=== PATIENT | male | born 1995 | race Caucasian/White ===

== ENCOUNTER 2017-02-17 08:22 | Emergency (ER) | payer SELFPAY ==
--- NOTE | 2017-02-17 08:52 | Emergency Department Record ---
History of Present Illness - General Chief Complaint: Abdominal Pain Stated Complaint: STOMACH PAINS Time Seen by Provider: 02/17/17 08:44 Mode of Arrival: Ambulatory - History of Present Illness Initial Comments: abdominal pain epigastic abd pain and started this am and he has low grade abd pain all the time. positive for nausea and dry heaves . loose stool times one in 24 hours and no dysuria. Primary is Kendra Shipman. Similiar problem 1.5 years ago and he had US of GB which showed slude and he had a hida scan which was normal and normal labs than and he failed to follow up with Dr. Rose on his Hida scan but he saw Dr. Rose before the Hida scan was ordered. Under stress from work and family. PSH colonoscopy neg 2 years ago and EGD 2 years ago negative. MD Complaint: Abdominal pain Onset/Timin -: Hour(s) Location: Diffuse Radiation: None Severity: Moderate Quality: Aching, Sharp Consistency: Intermittent Improves With: Other Worsens With: Rest Associated Symptoms: Denies other symptoms - Related Data Previous Rx's Medication Instructions Recorded Omeprazole 20 mg PO DAILY #30 02/17/17 Allergies Allergy/AdvReac Type Severity Reaction Status Date / Time No Known Drug Allergies Allergy Unknown Verified 02/17/17 08:29 [NO KNOWN DRUG ALLERGIES] Travel Screening - Travel/Exposure Within Last 30 Days Have you traveled within the last 30 days?: No - Travel/Exposure Within Last Year Have you traveled outside the [place] in the last year?: No - Additonal Travel Details Have you been exposed to anyone with a communicable illness?: No - Travel Symptoms Symptom Screening: None Review of Systems Reviewed: No additional complaints except as noted below Constitutional: Reports: As per HPI. Denies: Chills, Fever, Malaise, Night sweats, Weakness, Weight change Eyes: Reports: As per HPI. Denies: Eye discharge, Eye pain, Photophobia, Vision change ENT: Reports: As per HPI. Denies: Congestion, Dental pain, Ear pain, Epistaxis , Hearing loss, Throat pain Respiratory: Reports: As per HPI. Denies: Cough, Dyspnea, Hemoptysis, Stridor, Wheezes Cardiovascular: Reports: As per HPI. Denies: Arrhythmia, Chest pain, Dyspnea on exertion, Edema, Murmurs, Orthopnea, Palpitations, Paroxysmal nocturnal dyspnea, Rheumatic Fever, Syncope Endocrine: Reports: As per HPI. Denies: Fatigue, Heat or cold intolerance, Polydipsia, Polyuria Gastrointestinal: Reports: As per HPI, Abdominal pain, Diarrhea, Nausea, Vomiting. Denies: Constipation, Hematemesis, Hematochezia, Melena Genitourinary: Reports: As per HPI. Denies: Dysuria, Frequency, Hematuria, Incontinence, Retention, Testicular pain, Testicular mass, Urgency Musculoskeletal: Reports: As per HPI. Denies: Arthralgia, Back pain, Gout, Joint swelling, Myalgia, Neck pain Skin: Reports: As per HPI. Denies: Bruising, Change in color, Change in hair/ nails, Lesions, Pruritus, Rash Neurological: Reports: As per HPI. Denies: Abnormal gait, Confusion, Headache, Numbness, Paresthesias, Seizure, Tingling, Tremors, Vertigo, Weakness Psychiatric: Reports: As per HPI. Denies: Anxiety, Auditory hallucinations, Depression, Homicidal thoughts, Suicidal thoughts, Visual hallucinations Hematological/Lymphatic: Reports: As per HPI. Denies: Anemia, Blood Clots, Easy bleeding, Easy bruising, Swollen glands Past Medical History - SOCIAL HISTORY Smoking Status: Never smoker Alcohol Use: None Drug Use: Heavy Drug Use Detail:: Marijuana - RESPIRATORY Hx Respiratory Disorders: No - CARDIOVASCULAR Hx Cardio Disorders: No - NEURO Hx Neuro Disorders: No - GI Hx GI Disorders: Yes Hx Abdominal Pain: Yes Hx Nausea/Vomiting: Yes (nausea) Hx of Polyps: Yes Comment:: colonoscopy - Hx Genitourinary Disorders: No - ENDOCRINE Hx Endocrine Disorders: No - MUSCULOSKELETAL Hx Musculoskeletal Disorders: No Comment:: left ankle irritation from implants - PSYCH Hx Psych Problems: No - HEMATOLOGY/ONCOLOGY Hx Hematology/Oncology Disorders: No Family Medical History Any Significant Family History?: Yes Hx Cancer: Grandparents *Cancer Comment: grandma Physical Exam - General General Appearance: Alert, Oriented x3, Cooperative, No acute distress - Head Head exam: Normal inspection - Eye Eye exam: Normal appearance, PERRL Pupils: Normal accommodation - ENT ENT exam: Normal exam, Mucous membranes moist, Normal external ear exam, Normal orophraynx, TM's normal bilaterally Ear exam: Normal external inspection. negative: External canal tenderness Nasal Exam: Normal inspection. negative: Discharge, Sinus tenderness Mouth exam: Normal external inspection, Tongue normal Teeth exam: Normal inspection. negative: Dental caries Throat exam: Normal inspection. negative: Tonsillar erythema, Tonsillar exudate - Neck Neck exam: Normal inspection, Full ROM. negative: Tenderness - Respiratory Respiratory exam: Normal lung sounds bilaterally. negative: Respiratory distress - Cardiovascular Cardiovascular Exam: Regular rate, Normal rhythm, Normal heart sounds - GI/Abdominal GI/Abdominal exam: Soft, Normal bowel sounds, Guarding, Tenderness. negative: Rebound, Rigid - Rectal Rectal exam: Deferred - exam: Deferred - Extremities Extremities exam: Normal inspection, Full ROM, Normal capillary refill. negative: Tenderness - Back Back exam: Reports: Normal inspection, Full ROM. Denies: Muscle spasm, Rash noted, Tenderness - Neurological Neurological exam: Alert, Normal gait, Oriented X3, Reflexes normal - Psychiatric Psychiatric exam: Normal affect, Normal mood - Skin Skin exam: Dry, Intact, Normal color, Warm Course Vital Signs 02/17/17 08:30 Temperature 98 F Pulse Rate 68 Respiratory 18 Rate Blood Pressure 118/80 Pulse Ox 98 - Reevaluation(s) Reevaluation #1: patient is feeling much better pain down to one and tolerable 02/17/17 10:31 Medical Decision Making - Data Complexity MDM Data: Labs Ordered and/or Reviewed (WBC 4,700. UA neg ,chemistries neg), X- Ray Ordered and/or Reviewed (GB US neg no sludge seen on this US preliminary report) - Lab Data Result diagrams: 02/17/17 09:00 02/17/17 09:00 Disposition Clinical Impression: Gastritis Qualifiers: Gastritis type: unspecified gastritis Chronicity: acute Gastritis bleeding: without bleeding Qualified Code(s): K29.00 - Acute gastritis without bleeding GERD (gastroesophageal reflux disease) Qualifiers: Esophagitis presence: without esophagitis Qualified Code(s): K21.9 - Gastro- esophageal reflux disease without esophagitis Disposition: Home, Self-Care Condition: (1) Good Instructions: Gastritis (ED), Abdominal Pain (ED) Additional Instructions: tollow up with Kendra Walker in 5-7 days maalox 30 ml(two tablespoons) after meals and bedtime omeprazole 20 mg per day Prescriptions: Omeprazole 20 mg PO DAILY #30 cap.dr Forms: Patient Portal Access Time of Disposition: 10:35 Quality - Quality Measures Quality Measures: N/A - Blood Pressure Screening Does Patient Have Any of the Following: No Blood Pressure Classification: Pre-Hypertensive BP Reading Systolic Measurement: 118 Diastolic Measurement: 80 Screening for High Blood Pressure: < Normal BP, F/U Not Required > [G8730]
[2017-02-17] MEDS: MAGNESIUM HYDROXIDE/AL HYDROX 30 ML, LIDOCAINE VISC 2% 200 MG PO ONE ×2 (09:11)
[2017-02-17] MEDS: LORAZEPAM 2 MG/ML VIAL IV ONE (09:11)
[2017-02-17] MEDS: ONDANSETRON HCL IV 4 MG/2 ML VIAL IV ONE (09:11)
[2017-02-17] MEDS: 0.9 % SODIUM CHLORIDE 1,000 ML BAG IV ONE (09:14)
[2017-02-17 09:25] LABS: BASO % 1.3 % (0-6); EOS % 9.9 % (0-6); GRAN % 48.5 % (47-80); HEMATOCRIT 40.6 % (42.0-52.0); HEMOGLOBIN 14.1 gm/dl (14.0-18.0); MEAN CELL VOLUME 95.1 fl (81-97); MEAN CORPUSCULAR HGB CONC 34.7 g/dl (32-36); MEAN PLATELET VOLUME 10.7 fl (7.4-10.4); MONO % 7.3 % (0-9); PLATELET COUNT 149 K/uL (130-400); RED BLOOD COUNT 4.27 M/uL (4.40-5.70); WHITE BLOOD COUNT W/O DIFF 4.7 K/uL (4.2-12.2)
[2017-02-17 09:26] LABS: URINE APPEARANCE CLEAR; URINE BILIRUBIN NEGATIVE (NEGATIVE); URINE BLOOD NEGATIVE (NEGATIVE); URINE COLOR YELLOW; URINE GLUCOSE (UA) NEGATIVE (NEGATIVE); URINE KETONE NEGATIVE (NEGATIVE); URINE LEUKOCYTE ESTERASE NEGATIVE (NEGATIVE); URINE NITRITE NEGATIVE (NEGATIVE); URINE PROTEIN NEGATIVE (NEGATIVE); URINE UROBILINOGEN 0.2 E.U./dL (0.20 - 1.00)
[2017-02-17 09:48] LABS: ALBUMIN 4.4 g/dL (4.0-5.0); ALKALINE PHOSPHATASE 61 U/L (40-129); ALT/SGPT 8 U/L (<41); AST/SGOT 16 U/L (10.0-50.0); BLOOD UREA NITROGEN 11 mg/dL (6-20); CREATININE 0.8 mg/dL (0.7-1.2); EST GLOMERULAR FILTRATION RATE > 60 mL/min; GLUCOSE,RANDOM 92 mg/dL (74-109); LIPASE 13 U/L (13-60); TOTAL PROTEIN 6.9 g/dL (6.6-8.7)
[2017-02-17 09:49] LABS: BILIRUBIN,DIRECT < 0.2 mg/dL (0-0.3)
--- NOTE | 2017-02-19 14:17 | ULTRASOUND REPORT ---
EXAM: ABDOMEN ULTRASOUND HISTORY: INTERMITTENT CHRONIC MID ABDOMINAL PAIN. TECHNIQUE: Real-time muñoz scale sonographic imaging of the abdomen was performed. Comparison: Abdomen and pelvis CT 04/27/16. FINDINGS: The liver and spleen are not enlarged and appear homogeneous. No biliary dilatation. The common duct measures 3.5 mm in diameter and is normal. The gallbladder is normal without gallstones, gallbladder wall thickening, or pericholecystic fluid. Sonographic Ramos's sign is negative. The kidneys are normal without mass, calculi or hydronephrosis. The right kidney measures 12.4 x 4.2 x 5.8 cm and the left kidney measures 11.7 x 5.0 x 4.7 cm. The pancreas, abdominal aorta and IVC are normal. IMPRESSION: NORMAL ABDOMEN ULTRASOUND. JOB NUMBER: [id number] [facility]
== END 2017-02-17 11:03 | disposition home or self-care (01) ==
LOC: ER 08:22
DX: K29.00 Acute gastritis without bleeding (principal); K21.9 Gastro-esophageal reflux disease without esophagitis; R10.84 Generalized abdominal pain; R11.0 Nausea
CPT/HCPCS: 99284 ×2; 96374; 96375; 83690; 85025; 80076; 80048; 81003; 76700; J2405; J2060; J7030